=== PATIENT | male | born 1985 | race Asian ===

== ENCOUNTER 2018-04-29 10:17 | Emergency (ER) | payer BC ==
[~2018-04-29] VITALS: Ht 172.7 cm; Wt 65.8 kg
--- NOTE | 2018-04-29 10:50 | Emergency Room Report ---
History of Present Illness General Chief Complaint: Lower Back Pain or Injury Source: Patient Present Illness HPI This patient states that yesterday evening he climbed over a fence and when he just jumped down onto the other side he landed off to the left. He states that since that time he has had pain in his low back in the midline. He denies weakness. He denies tingling or numbness. Denies loss of bowel or bladder control. He has no other injuries or complaints. Allergies: Coded Allergies: No Known Allergies (Unverified , 04/29/18) Patient History Past Medical History: see triage record, asthma Social History: Denies: smoking, alcohol use, drug use Reviewed Nursing Documentation: PMH: Agreed; PSxH: Agreed Nursing Documentation-PMH Hx Asthma: Yes Review of Systems All Other Systems: negative except mentioned in HPI Physical Exam Vital Signs Date Time Temp Pulse Resp B/P (MAP) Pulse Ox O2 Delivery O2 Flow Rate FiO2 04/29/18 10:20 98.3 91 18 115/68 95 Room Air 98.2 Sp02 EP Interpretation: reviewed, normal General Appearance: no apparent distress, alert, GCS 15, non-toxic Head: normocephalic, atraumatic Eyes: bilateral eye normal inspection, bilateral eye PERRL ENT: hearing grossly normal, normal pharynx, no angioedema, normal voice Neck: full range of motion, supple/symm/no masses Respiratory: no respiratory distress, no retraction, no accessory muscle use, speaking full sentences Rectal: deferred Musculoskeletal: back normal, gait/station normal, normal range of motion, other - Tender to palpation on the lumbar spine L4, L5. Neurologic: alert, oriented x3, responsive, motor strength/tone normal, sensory intact, speech normal Psychiatric: judgement/insight normal, memory normal, mood/affect normal, no suicidal/homicidal ideation Skin: normal color, no rash, warm/dry, well hydrated Medical Decision Making Diagnostic Impression: Primary Impression: Low back strain ER Course This patient has a clinical presentation consistent with muscle strain. The patient did jump a fence, so I did obtain a lumbar spine x-ray which showed no acute findings or fracture. There is no evidence of compartment syndrome. There is no neurologic deficit. The patient was instructed on supportive home measures. No emergency medical condition was identified. The patient was given return precautions and followup instructions. Other X-Ray Diagnostic Results Other X-Ray Diagnostic Results : X-Ray ordered: Lumbar spine # of Views/Limited Vs Complete: Complete Indication: Pain EP Interpretation: No Interpretation: no dislocation, no soft tissue swelling, no fractures Impression: No acute disease Electronically Signed by: Molly Last Vital Signs Date Time Temp Pulse Resp B/P (MAP) Pulse Ox O2 Delivery O2 Flow Rate FiO2 04/29/18 10:20 98.3 91 18 115/68 95 Room Air 98.2 Status: improved Disposition: HOME, SELF-CARE Condition: Improved Scripts Ibuprofen* (MOTRIN*) 600 Mg Tablet 600 MG ORAL THREE TIMES A DAY, #30 TAB 0 Refills Prov: ALEXIS CLARK D.O. 04/29/18 Patient Instructions: Low Back Sprain With [facility] ALEXIS CLARK D.O. Apr 29, 2018 10:50
[2018-04-29 10:55] VITALS: BP 115/68
[2018-04-29] MEDS ORDERED: IBUPROFEN600 MG ORAL (10:58)
[2018-04-29] MEDS ORDERED: Ketorolac 60mg Inj IM ONE (11:00)
[2018-04-29 11:41] VITALS: BP 119/78
--- NOTE | 2018-04-29 11:41 | Diagnostic Imaging Report ---
Indication: Pain, status post trauma Technique: 3 views of the lumbar spine Comparison: None Findings: Bony alignment is normal. Vertebral body heights are preserved. Disc spaces are preserved. No acute fractures. No dislocations. Pedicles are intact. Sacroiliac joint spaces are preserved. Sacral arches are preserved. Impression: No acute bony trauma
== END 2018-04-29 11:44 | disposition home or self-care (01) ==
LOC: EMR 11:00
DX: S39.012A Strain of muscle, fascia and tendon of lower back, initial encounter (principal); Y93.39 Activity, other involving climbing, rappelling and jumping off; Y92.9 Unspecified place or not applicable; J45.909 Unspecified asthma, uncomplicated
CPT/HCPCS: 72110; 96372; 99283